=== PATIENT | male | born 1990 | race Caucasian/White ===

== ENCOUNTER 2018-11-15 11:45 | Inpatient (IN) | payer OTHER ==
[2018-11-15] MEDS ORDERED: VANCOMYCIN IV PER PHARMACY 1 EACH MISC MISCELLANE PRN (12:43)
[2018-11-15 13:36] VITALS: BMI 21.9
[2018-11-15] MEDS ORDERED: VANCOMYCIN 1,750 MG in SODIUM CHLORIDE 0.9% 500 ML 500 ML IVPB ONE (14:00)
[2018-11-15] MEDS: AMPICILLIN-SULBACTAM 3 GM in SODIUM CHLORIDE 0.9% 100 ML IVPB SCH ×2 (14:06→19:48)
[2018-11-15 14:26] LABS: African American GFR (CKD) >90 (>60 ml/min/1.73 sqM)
[2018-11-15] MEDS ORDERED: DIAZEPAM 5 MG TAB PO ONE (17:15)
--- NOTE | 2018-11-15 19:01 | MR ---
EXAMINATION TYPE: MR hand RT wo/w con DATE OF EXAM: 11/15/2018 COMPARISON: HISTORY: Right hand cellulitis CONTRAST: Standard multiplanar, multisequence MRI departmental protocol utilizing 7.5 mL intravenous Gadavist g adolinium contrast. FINDINGS: There is a 2.5 cm complex mixed signal mass in the soft tissues between the first and second metacarp al heads near the skin surface. The bony structures have normal signal pattern. There is no pathologi c enhancement. There multiple low signal areas within the mass that raises the possibility of foreign bodies. The flexor tendons of the hand appear intact. Extensor tendons appear intact. There is small amount o f fluid seen adjacent to the trapezoid and base of the second metacarpal that extends into the dista l anterior soft tissues. This is consistent with a synovial cyst. There is mild subcutaneous edema on the dorsum of the hand. IMPRESSION: Complex mass in the soft tissues as above between first and second metacarpals. Foreign body not excl uded. This is consistent with blood clot and air bubbles. Mild subcutaneous edema on the dorsum of the hand. \Simple fluid at the second carpometacarpal joint consistent with synovitis cyst.
[2018-11-15] MEDS ORDERED: ACETAMINOPHEN TAB 325 MG TAB PO PRN (19:16)
[2018-11-15] MEDS ORDERED: HYDROcodone/APAP 5-325MG 1 EACH TAB PO PRN (19:17)
--- NOTE | 2018-11-15 19:48 | P.PN ---
Subjective Progress Note Date: 11/15/18 The patient was seen and examined at the bedside. He states the pain seems to have improved. The fingers and thumb are moving easier. He thinks the redness has diminished as well. Objective - Vital Signs Vital signs: Vital Signs Temp 98.3 F 11/15/18 13:22 Pulse 81 11/15/18 13:22 Resp 16 11/15/18 13:22 BP 134/82 11/15/18 13:22 Pulse Ox 99 11/15/18 13:22 Intake & Output 11/15/18 11/15/18 11/16/18 06:59 18:59 06:59 Weight 86.035 kg - Exam Moderate edema in the 1st webspace. Mild tenderness to palpation. No calor or drainage. They erythema has improved. Lymphangitic streaking still noted along the volar forearm and medial arm but slightly less prominent than on prior exam. - Labs CBC & Chem 7: 11/15/18 14:05 Assessment and Plan Assessment: Right hand cellulitis status post splinter puncture wound Plan: Discussed the clinical findings with the patient. Recommended continued observation overnight. Continue IV abx. Will re-eval in am. NPO after midnight. PRN pain management.
[2018-11-15] MEDS: IBUPROFEN 800 MG TAB PO PRN (19:56)
[2018-11-15] MEDS: VANCOMYCIN 1,500 MG in SODIUM CHLORIDE 0.9% 250 ML IVPB SCH (23:11)
--- NOTE | 2018-11-15 23:12 | P.CONS ---
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 He did remove it and the site. However over the following hours the hand became very swollen he then developed evidence of lymphangitic streaking all the way to his axilla. With the acute change in the status he was sent for outpatient evaluation. He was seen in orthopedic hand office and admitted to hospital. At the time of admission had the pleasure of discussing the case with the orthopedic surgeon and antibiotic therapy with vancomycin and Unasyn was started given the foreign body injury. Pleasant gentleman relates that his pain is improving. He does have limited use of the right hand because of the significant swelling that is present. He has not noticed any purulent drainage. He's had low-grade fever and chill or rigors. Review of Systems HEENT:Denies headache or acute visual change. Denies sinus or mouth discomforts. Denies neck stiffness or pain. Denies significant oral cavity pain. Denies difficulty on swallowing. Lungs: Denies significant shortness of breath, cough, sputum production, or hemoptysis. Cardiovascular: Denies significant shortness of breath, chest pain, chest wall pain, orthopnea, dyspnea on exertion, syncope Gastrointestinal:Denies nausea, vomiting, diarrhea, constipation, hematemesis, melena, hematochezia. No no significant change of bowel habit noticed. Musculoskeletal: denies significant myalgias or arthralgias. No new joint swelling. Denies new back pain. Skin:\As per the HPI has developed injury to his right hand with significant swelling, erythema or ascending lymphangitis.. Neuro: Denies headache or visual change. Denies any new onset weakness or difficulty with ambulation. Denies falls or seizures. Psychiatric:Denies anxiety or depression. Endocrine: Denies significant fatigue, denies significant weight loss or weight gain. Past Medical History Past Medical History: No Reported History History of Any Multi-Drug Resistant Organisms: None Reported Additional Past Surgical History / Comment(s): lazy eye surgery at 17y/o Past Anesthesia/Blood Transfusion Reactions: No Reported Reaction Past Psychological History: No Psychological Hx Reported Additional Psychological History / Comment(s): . Lives in the family home with his and 5-month-old son. 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 No experience. No travel. Avid kia. No tobacco use and alcohol use or recreational drug use Smoking Status: Never smoker - Past Family History Mother Additional Family Medical History / Comment(s): etoh Medications and Allergies Home Medications and Allergies Comment(s): Current Medications Acetaminophen (Tylenol Tab) 650 mg PO Q4HR PRN PRN Reason: Pain Hydrocodone Bitart/Acetaminophen ([place] 5-325) 1 each PO Q4HR PRN PRN Reason: Pain Scale 6 to 10 Ampicillin Sodium/Sulbactam (Sodium 3 gm/ Sodium Chloride) 100 mls @ 200 mls/hr IVPB Q6HR [facility] Last Admin: 11/15/18 19:48 Dose: 200 mls/hr Documented by: Vancomycin HCl 1,500 mg/ (Sodium Chloride) 250 mls @ 125 mls/hr IVPB Q8H [facility] Ibuprofen (Motrin) 800 mg PO TID PRN PRN Reason: Moderate Pain Last Admin: 11/15/18 19:56 Dose: 800 mg Documented by: Home Medications Medication Instructions Recorded Confirmed Type Multivitamins, Thera [Multivitamin 1 tab PO DAILY 11/15/18 11/15/18 History (formulary)] Allergies Allergy/AdvReac Type Severity Reaction Status Date / Time No Known Allergies Allergy Verified 11/15/18 14:21 Physical Exam Vitals: Vital Signs Temp Pulse Resp BP Pulse Ox 11/15/18 21:12 99.6 F 73 16 126/71 98 11/15/18 13:22 98.3 F 81 16 134/82 99 Intake and Output 11/15/18 11/15/18 11/15/18 06:59 14:59 22:59 Intake Total 480 Balance 480 Intake: Oral 480 Other: Weight 86.035 kg Pleasant 28-year-old male, he has a tall thin but muscular build HEENT: Anicteric conjunctiva are pink and moist nasal mucosa grossly intact without significant lesions, there is no thrush. Neck: The neck is supple without significant lymphadenopathy or thyromegaly. Lungs: Good bilateral air entry without significant crackles or wheezing. There is no significant bronchial sounds. There is no egophony or dullness. Heart: Regular rate and rhythm with an audible S1-S2, no S3 no S4. There is no significant murmur click or rub, PMI was nondisplaced. Abdomen: Positive bowel sounds soft and nontender without palpable masses or organomegaly. There was no guarding or rebound. Extremities: The left upper extremities without abnormalities. The right upper extremity reveals evidence of the significant swelling to the hand with the nondraining puncture site in the first webspace. The puncture site is currently healed with no expressible purulence or fluid. There is the distinct ascending lymphangitis from the hand all the way to the axilla with evidence of some minimal tender lymphadenopathy to the axilla. There are no blisters or other open lesions being seen.The lower extremities are free from significant edema. The peripheral pulses were 2+ and symmetric. Neuro: Awake alert oriented to person place and time. There are no acute new gross focal sensory motor deficits. 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 It was removed and the site was cleansed. However shortly thereafter his hand started to swell he developed the extensive ascending lymphangitis all the way to the axilla with some adenopathy in the axilla. It some low-grade fever but no severe chills or rigors. With a severe abnormality was brought in the hospital. MRI has been requested by orthopedic surgery. Cases been discussed with them. MRI will help determine the need for surgical intervention and drainage and exploration for foreign body removal. For antimicrobial therapy while cultures are process vancomycin and Unasyn are being utilized because it was a wood related product. The patient is quite anxious but expectantly well. He is up-to-date with his tetanus vaccine. He knows to have a high protein diet when he is allowed to eat and if possible multivitamin should be utilized. Current Visit: Yes Status: Acute Code(s): S61.441A - PUNCTURE WOUND WITH FOREIGN BODY OF RIGHT HAND, INIT ENCNTR SNOMED Code(s): 849726029 (2) Ascending bacterial lymphangitis Current Visit: Yes Status: Acute Code(s): L03.91 - ACUTE LYMPHANGITIS, UNSPECIFIED; B96.89 - OTH BACTERIAL AGENTS THE CAUSE OF DISEASES [facility]SD [facility] SNOMED Code(s): 382413942
[2018-11-16] MEDS: AMPICILLIN-SULBACTAM 3 GM in SODIUM CHLORIDE 0.9% 100 ML IVPB SCH ×4 (01:43→18:15)
[2018-11-16] MEDS: IBUPROFEN 800 MG TAB PO PRN (03:24)
[2018-11-16] MEDS: VANCOMYCIN 1,500 MG in SODIUM CHLORIDE 0.9% 250 ML IVPB SCH ×3 (08:06→23:15)
--- NOTE | 2018-11-16 08:21 | P.PN ---
Subjective Progress Note Date: 11/16/18 The patient states that the redness of the arm has resolved but the pain and pressure in the hand has increased substantially. Early this morning, the hand started draining some clear, yellowish fluid. Objective - Vital Signs Vital signs: Vital Signs Temp 98.5 F 11/16/18 07:00 Pulse 75 11/16/18 07:00 Resp 18 11/16/18 07:31 BP 126/74 11/16/18 07:00 Pulse Ox 99 11/16/18 07:00 Intake & Output 11/15/18 11/16/18 11/16/18 18:59 06:59 18:59 Intake Total 480 Balance 480 Weight 86.035 kg Intake: Oral 480 Other: # Voids 2 2 - Exam Increased focal edema in the 1st webspace with underlying ecchymosis. The skin is quite tense. Moderate tenderness to palpation. Scant clear transudative fluid draining from the dorsal aspect of the first webspace commissure. Lymphangitic streaking up the arm/forearm has resolved. - Additional findings Additional findings: MRI images of the right hand were reviewed and interpreted from an orthopedic standpoint. These demonstrate a well-circumscribed nonenhancing fluid collection in the first webspace. This has mixed signal intensity and small air pockets. No obvious retained foreign bodies. This does not appear to track into the palm or extend into the muscle bellies. - Labs CBC & Chem 7: 11/15/18 14:05 Assessment and Plan Assessment: Right hand cellulitis status post splinter puncture wound with thenar eminence abscess Plan: Discussed the clinical findings with the patient. With the increasing pain, swelling and new onset drainage, I recommended proceeding with formal surgical debridement. Risks and benefits were discussed the patient. He expressed understanding and agreement to proceed with surgery. Continue NPO and PRN pain management. We will perform an incision and drainage of right hand abscess.
[2018-11-16] MEDS ORDERED: ONDANSETRON 4 MG/2 ML VIAL IVP ONE (09:45)
[2018-11-16] MEDS ORDERED: LIDOCAINE 1% 20 ML VIAL (10MG/ML) FOR IV START INTRADERMA PRN (09:45)
[2018-11-16] MEDS ORDERED: HYDROmorphone 0.5 MG/0.5 ML SYRINGE IVP PRN ×2 (09:45→12:04)
[2018-11-16] MEDS ORDERED: MIDAZOLAM 2 MG/2 ML VIAL ONE (10:29)
[2018-11-16] MEDS ORDERED: PROPOFOL 10 MG/ML 20 ML VIAL IV ONE (10:29)
[2018-11-16] MEDS ORDERED: fentaNYL (PF) 50 MCG/ML 2 ML AMP ONE (10:29)
[2018-11-16] MEDS ORDERED: LIDOCAINE 1% INJ 10MG/ML (20 ML MDV) ONE (10:29)
[2018-11-16] MEDS ORDERED: IV FLUID CONTINUATION 500 ML IV ONE (10:53)
[2018-11-16] MEDS ORDERED: ROPIVACAINE 5MG/ML 20ML VIAL MISCELLANE ONE ×3 (10:55)
[2018-11-16] MEDS ORDERED: LIDOCAINE 1% INJ 10MG/ML (20 ML MDV) SQ ONE ×2 (10:56)
[2018-11-16] MEDS: KETOROLAC 30 MG/ML 1 ML VIAL IVP SCH ×2 (12:06→18:14)
[2018-11-16] MEDS ORDERED: SODIUM CHLORIDE 0.9% 1,000 ML IV ONE (12:08)
[2018-11-16] MEDS: ONDANSETRON 4 MG/2 ML VIAL IVP PRN ×2 (12:25→18:14)
--- NOTE | 2018-11-16 12:48 | P.OP ---
Date of Procedure: 11/16/18 Preoperative Diagnosis: Right hand abscess status post puncture wound Postoperative Diagnosis: Right hand abscess status post puncture wound Procedure(s) Performed: Incision and drainage of right hand abscess Anesthesia: LISSET, local Surgeon: Jak Zee Estimated Blood Loss (ml): 5 Pathology: other (Wound culture swabs, deep tissue culture) Condition: stable Disposition: PACU Indications for Procedure: The patient is a very pleasant 28-year-old male who sustained a puncture wound to his right hand from a piece of treated pined lumber. When pain and swelling worsened, he was evaluated in the emergency department at an outside hospital and sent to my office for further evaluation. He was subsequently admitted for IV antibiotics and monitoring. The pain, swelling and redness initially improved with antibiotics, but gradually began worsening again. Surgical d ebridement was recommended. Risks and benefits were reviewed including (but not limited to) the risks of bleeding, injury to tendons or neurovascular structures, persistent or recurrent infection, wound healing problems, stiffness and possible need for additional surgery. The patient expressed understanding, willingness to accept these risks and wished to proceed with surgery. Consent forms were signed. The surgical site was confirmed and marked preoperatively. Operative Findings: Approximately 5 cc of cloudy yellow purulent fluid was encountered immediately after incision in the dorsal first webspace. No foreign matter was identified. The infection did not appear to involve the surrounding muscles or track into the deep spaces of the hand. No myonecrosis. Description of Procedure: The patient was brought to the operating suite by the anesthesia team and was positioned supine. All bony prominences were well-padded. General anesthesia was administered uneventfully. A tourniquet was placed on the operative limb, which was then prepped and draped in standard, sterile fashion. A time-out was performed, confirming patient identifiers, the operative side, site and the procedure to be performed: all team members expressed agreement. The limb was exsanguinated with an Esmarch (proximal to the wrist) and the tourniquet was i nflated. A longitudinal incision was marked over the dorsal aspect of the first web space. The skin was sharply incised and abundant cloudy, yellow purulent fluid was encountered and expressed from the wound. A swab culture was obtained. The wound was explored with blunt, spreading dissection. Scattered foci of thickened, reactive/fibrous tissue were encountered throughout the wound and were resected with rongeurs and scissors. A sample of this tissue from the deep portion of the first webspace was sent for culture. No foreign debris was identified. The incision was extended volarly to explore the puncture wound tract. Care was taken to protect the digital neurovascular bundles of the thumb. A small puncture wound was identified in the belly of the first dorsal interosseous mus susan. The muscle fibers were bluntly spread and no necrotic tissue or purulence was identified. Blunt, spreading dissection was used to explore the dorsum of the hand, as well as the volar aspect of the first webspace and thenar eminence. Septae were divided and small foci of thin, flores fluid were identified, but no pockets of grossly purulent fluid. A combination of sharp and mechanical debridement was used to resect infected and unhealthy tissue. The wound was copiously irrigated with 2 L of normal saline using a bulb syringe. The surrounding soft tissues were mechanically debrided with a curette. The tourniquet was released after 36 minutes at 250 mmHg. Excellent hemostasis was obtained with held pressure. The pressure from the swelling had caused separation of the most superficial skin layer at the central aspect of the incision. This tissue was sharply resected back to healthy margins. The incision was loosely closed over 2 separate pieces of a [place] drain with inter rupted 4-0 Prolene sutures. Local anesthetic without epinephrine was injected as a field block/partial wrist block for postoperative pain control. Sterile dressings of Adaptic, 4 x 4's, Kerlix and Coban were applied. All sponge, needle and instrument counts were correct at the end of the case. The patient tolerated the procedure well and was taken to recovery in stable condition. The patient will be returned to the floor for continued monitoring and IV antibiotics, to be guided by intraoperative cultures.
[2018-11-17] MEDS: KETOROLAC 30 MG/ML 1 ML VIAL IVP SCH ×5 (01:17→23:51)
[2018-11-17] MEDS: AMPICILLIN-SULBACTAM 3 GM in SODIUM CHLORIDE 0.9% 100 ML IVPB SCH ×4 (01:17→20:27)
[2018-11-17] MEDS: LACTATED RINGERS 1,000 ML IV SCH ×2 (01:18→20:27)
[2018-11-17] MEDS ORDERED: VANCOMYCIN TROUGH DUE 1 EACH MISC MISCELLANE ONE (06:00)
[2018-11-17 07:20] LABS: African American GFR (CKD) >90 (>60 ml/min/1.73 sqM)
[2018-11-17] MEDS: VANCOMYCIN 1,500 MG in SODIUM CHLORIDE 0.9% 250 ML IVPB SCH (08:36)
--- NOTE | 2018-11-17 10:38 | P.PN ---
Subjective Progress Note Date: 11/17/18 The patient states that the preoperative pain has improved substantially. The pressure sensation is gone. Pain is well-controlled with ibuprofen. He denies any numbness or tingling. He did have an episode of diarrhea this morning. Objective - Vital Signs Vital signs: Vital Signs Temp 98.5 F 11/17/18 07:00 Pulse 64 11/17/18 07:00 Resp 16 11/17/18 07:00 BP 129/83 11/17/18 07:00 Pulse Ox 99 11/17/18 07:00 Intake & Output 11/16/18 11/17/18 11/17/18 18:59 06:59 18:59 Intake Total 810 160 Output Total 5 Balance 805 160 Intake: IV 550 Intake, IV Titration 260 160 Amount Ampicillin-Sulbactam 3 gm 100 100 In Sodium Chloride 0.9% 100 ml @ 200 mls/hr IVPB Q6HR [facility] Rx#:[id number] Lactated Ringers 1,000 ml 160 60 @ 20 mls/hr IV .Q24H [facility] Rx#:[id number] Output: Estimated Blood Loss 5 Other: Voiding Method Toilet # Voids 2 1 - Exam The dressings were removed. Mild to moderate shadowing dorsally. Mild but improved edema around the hand. No discrete subcutaneous fluid collection. No erythema or eccymosis. The incision is well-approximated with sutures in place. No necrosis or dehiscence. The drains are in place. The more volar one was removed easily. Small amount of serous fluid followed by no purulence was expressed from the wound. Light touch sensation is subjectively normal on both sides of the thumb and index finger. The lymphangitic streaking up the arm has resolved. - Labs CBC & Chem 7: 11/17/18 06:37 Labs: Microbiology - Last 24 Hours (Table) 11/16/18 11:54 Gram Stain - Preliminary Hand - Right Wound Culture - Preliminary 11/16/18 11:54 Gram Stain - Preliminary Hand - Right Tissue Culture - Preliminary 11/16/18 11:54 Fungal Culture - Preliminary Hand - Right 11/16/18 11:54 Anaerobic Culture - Preliminary Hand - Right 11/16/18 11:54 Anaerobic Culture - Preliminary Hand - Right 11/16/18 11:54 Fungal Culture - Preliminary Hand - Right Preliminary cultures: Moderate gram-positive cocci Rare gram-negative bacilli Rare gram-positive bacilli Assessment and Plan Assessment: Postoperative day #1 status post incision and drainage of right hand abscess Preliminary cultures demonstrated a polymicrobial infection Plan: I discussed the clinical and intraoperative findings in detail with the patient. The hand is looking much better. A new dressing was applied. Range of motion exercises were demonstrated. He may use the hand lightly but should avoid gripping/squeezing. The diarrhea is likely due to the antibiotics. Continue IV antibiotics per ID -- appreciate Dr. Peña' assistance in the patient's care. Continue ibuprofen PRN for pain but instructed the patient to use the norco if this isn't adequately controlling it. Encourage ambulation for DVT prophylaxis. DC planning - patient may require outpatient IV antibiotic therapy. Note: The patient has a significant fear of needles. Recommend only perform ing lab draws when absolutely necessary.
[2018-11-17] MEDS: VANCOMYCIN 1,750 MG in SODIUM CHLORIDE 0.9% 500 ML 500 ML IVPB SCH ×2 (17:31→23:52)
[2018-11-18] MEDS: AMPICILLIN-SULBACTAM 3 GM in SODIUM CHLORIDE 0.9% 100 ML IVPB SCH ×4 (03:02→18:30)
[2018-11-18] MEDS: KETOROLAC 30 MG/ML 1 ML VIAL IVP SCH ×2 (05:48→11:37)
--- NOTE | 2018-11-18 07:58 | P.PN ---
Subjective Progress Note Date: 11/18/18 The patient states the pain has essentially resolved. "It feels great!" The diarrhea has also resolved. Denies new issues or concerns. Objective - Vital Signs Vital signs: Vital Signs Temp 98.3 F 11/18/18 07:22 Pulse 74 11/18/18 07:22 Resp 16 11/18/18 07:22 BP 116/63 11/18/18 07:22 Pulse Ox 99 11/18/18 07:22 Intake & Output 11/17/18 11/18/18 11/18/18 18:59 06:59 18:59 Intake Total 1180 800 Balance 1180 800 Intake: Intake, IV Titration 700 800 Amount Ampicillin-Sulbactam 3 gm 200 100 In Sodium Chloride 0.9% 100 ml @ 200 mls/hr IVPB Q6HR [facility] Rx#:[id number] Lactated Ringers 1,000 ml 200 @ 20 mls/hr IV .Q24H [facility] Rx#:[id number] Vancomycin 1,750 mg In 500 500 Sodium Chloride 0.9% 500 ml 500 ml @ 167 mls/hr IVPB Q8H [facility] Rx#: [id number] Oral 480 Other: Voiding Method Toilet Toilet Toilet # Voids 4 3 - Exam The dressings were removed. No erythema or ecchymosis. The incision is well-approximated with sutures in place. The central aspect is slightly white and macerated. The second drain was removed easily. No purulence or fluid collection was expressed from the wound. No tenderness at the base of the webspace or thenar eminence. - Labs CBC & Chem 7: 11/17/18 06:37 Labs: Microbiology - Last 24 Hours (Table) 11/16/18 11:54 Gram Stain - Preliminary Hand - Right Wound Culture - Preliminary 11/16/18 11:54 Gram Stain - Preliminary Hand - Right Tissue Culture - Preliminary Assessment and Plan Assessment: Postoperative day #2 status post incision and drainage of right hand abscess Preliminary cultures demonstrated a polymicrobial infection Plan: The hand continues to show clinical improvement. No further surgery anticipated at this time. A new dressing was applied. Continue range of motion exercises. Final cultures still pending. Continue empiric IV antibiotics per ID Continue PRN pain management. Encourage ambulation for DVT prophylaxis. DC planning - patient may require outpatient IV antibiotic therapy. Patient will be ready for discharge once final cultures obtained and definitive abx plan is in place. Note: The patient has a significant fear of needles. Recommend only performing lab draws when absolutely necessary.
[2018-11-18] MEDS: LACTATED RINGERS 1,000 ML IV SCH (08:32)
[2018-11-18] MEDS: VANCOMYCIN 1,750 MG in SODIUM CHLORIDE 0.9% 500 ML 500 ML IVPB SCH ×2 (08:33→16:13)
[2018-11-18 14:49] VITALS: RESP 18
[2018-11-18 18:01] LABS: Basophils # (A) 0.1 k/uL (0-0.2); Basophils % (A) 1 %; Eosinophils # (A) 0.3 k/uL (0-0.7); Eosinophils % (A) 3 %; HCT 42.5 % (39.0-53.0); Lymphocytes % (A) 23 %; MCH 30.6 pg (25.0-35.0); MCV 92.6 fL (80.0-100.0); Mean Platelet Volume 8.3; Monocytes # (A) 0.4 k/uL (0-1.0); Monocytes % (A) 5 %; Neutrophils # (A) 5.8 k/uL (1.3-7.7); Neutrophils % (A) 67 %; Platelet Count 257 k/uL (150-450); RBC 4.59 m/uL (4.30-5.90); RDW 11.9 % (11.5-15.5); WBC 8.8 k/uL (3.8-10.6)
[2018-11-18 18:12] LABS: ALT 36 U/L (21-72); AST 33 U/L (17-59); African American GFR (CKD) >90 (>60 ml/min/1.73 sqM); Albumin 4.1 g/dL (3.5-5.0); Alkaline Phosphatase 52 U/L (38-126); Anion Gap 10 mmol/L; Blood Urea Nitrogen 17 mg/dL (9-20); Calcium 9.6 mg/dL (8.4-10.2); Carbon Dioxide 23 mmol/L (22-30); Chloride 110 mmol/L (98-107); Glucose 122 mg/dL (74-99); Potassium 3.7 mmol/L (3.5-5.1); Sodium 143 mmol/L (137-145); Total Bilirubin 0.4 mg/dL (0.2-1.3)
[2018-11-18] MEDS: IBUPROFEN 800 MG TAB PO PRN (20:31)
--- NOTE | 2018-11-18 21:54 | P.PN ---
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 He did remove it and the site. However over the following hours the hand became very swollen he then developed evidence of lymphangitic streaking all the way to his axilla. With the acute change in the status he was sent for outpatient evaluation. He was seen in orthopedic hand office and admitted to hospital. At the time of admission had the pleasure of discussing the case with the orthopedic surgeon and antibiotic therapy with vancomycin and Unasyn was started given the foreign body injury. Pleasant gentleman relates that his pain is improving. He does have limited use of the right hand because of the significant swelling that is present. He has not noticed any purulent drainage. He's had low-grade fever and chill or rigors. 11/18/2018 patient now much improved, the lymphangitis has resolved and pain is improved except from the surgical site ,the drain was removed today and this has improved the local discomfort. No fever or chills is feeling much better. Objective - Vital Signs Vital signs: Vital Signs Temp 98.2 F 11/18/18 20:22 Pulse 63 11/18/18 20:22 Resp 18 11/18/18 20:22 BP 139/89 11/18/18 20:22 Pulse Ox 99 11/18/18 20:22 Intake & Output 11/18/18 11/18/18 11/19/18 06:59 18:59 06:59 Intake Total 800 221 Balance 800 221 Intake: Intake, IV Titration 800 Amount Ampicillin-Sulbactam 3 gm 100 In Sodium Chloride 0.9% 100 ml @ 200 mls/hr IVPB Q6HR [facility] Rx#:[id number] Lactated Ringers 1,000 ml 200 @ 20 mls/hr IV .Q24H [facility] Rx#:[id number] Vancomycin 1,750 mg In 500 Sodium Chloride 0.9% 500 ml 500 ml @ 167 mls/hr IVPB Q8H [facility] Rx#: [id number] Oral 221 Other: Voiding Method Toilet Toilet # Voids 3 1 - Exam Pleasant 28-year-old male, he has a tall thin but muscular build HEENT: Anicteric conjunctiva are pink and moist nasal mucosa grossly intact without significant lesions, there is no thrush. Neck: The neck is supple without significant lymphadenopathy or thyromegaly. Lungs: Good bilateral air entry without significant crackles or wheezing. There is no significant bronchial sounds. There is no egophony or dullness. Heart: Regular rate and rhythm with an audible S1-S2, no S3 no S4. There is no significant murmur click or rub, PMI was nondisplaced. Abdomen: Positive bowel sounds soft and nontender without palpable masses or organomegaly. There was no guarding or rebound. Extremities: The left upper extremities without abnormalities. The right upper extremity reveals evidence of the improved swelling to the hand with the Surgical site being sutured closed loosely without significant drainage. EARL drain has been removed. The ascending lymphangitis has completely resolved and the tender right axillary lymphadenopathy has also resolved.. There are no blisters or other open lesions being seen.The lower extremities are free from significant edema. The peripheral pulses were 2+ and symmetric. Neuro: Awake alert oriented to person place and time. There are no acute new gross focal sensory motor deficits. - Labs CBC & Chem 7: 11/18/18 17:32 11/18/18 17:32 Labs: Abnormal Lab Results - Last 24 Hours (Table) 11/18/18 Range/Units 17:32 Chloride 110 H (98-107) mmol/L Glucose 122 H (74-99) mg/dL Microbiology - Last 24 Hours (Table) 11/16/18 11:54 Gram Stain - Final Hand - Right Wound Culture - Final Laboratory Results WBC 8.8 k/uL (3.8-10.6) 11/18/18 17:32 RBC 4.59 m/uL (4.30-5.90) 11/18/18 17:32 Hgb 14.0 gm/dL (13.0-17.5) 11/18/18 17:32 Hct 42.5 % (39.0-53.0) 11/18/18 17:32 MCV 92.6 fL (80.0-100.0) 11/18/18 17:32 MCH 30.6 pg (25.0-35.0) 11/18/18 17:32 MCHC 33.0 g/dL (31.0-37.0) 11/18/18 17:32 RDW 11.9 % (11.5-15.5) 11/18/18 17:32 Plt Count 257 k/uL (150-450) 11/18/18 17:32 Neutrophils % 67 % 11/18/18 17:32 Lymphocytes % 23 % 11/18/18 17:32 Monocytes % 5 % 11/18/18 17:32 Eosinophils % 3 % 11/18/18 17:32 Basophils % 1 % 11/18/18 17:32 Neutrophils # 5.8 k/uL (1.3-7.7) 11/18/18 17:32 Lymphocytes # 2.0 k/uL (1.0-4.8) 11/18/18 17:32 Monocytes # 0.4 k/uL (0-1.0) 11/18/18 17:32 Eosinophils # 0.3 k/uL (0-0.7) 11/18/18 17:32 Basophils # 0.1 k/uL (0-0.2) 11/18/18 17:32 Sodium 143 mmol/L (137-145) 11/18/18 17:32 Potassium 3.7 mmol/L (3.5-5.1) 11/18/18 17:32 Chloride 110 mmol/L (98-107) H 11/18/18 17:32 Carbon Dioxide 23 mmol/L (22-30) 11/18/18 17:32 Anion Gap 10 mmol/L 11/18/18 17:32 BUN 17 mg/dL (9-20) 11/18/18 17:32 Creatinine 0.67 mg/dL (0.66-1.25) 11/18/18 17:32 Est GFR (CKD-EPI)AfAm >90 (>60 ml/min/1.73 sqM) 11/18/18 17:32 Est GFR (CKD-EPI)NonAf >90 (>60 ml/min/1.73 sqM) 11/18/18 17:32 Glucose 122 mg/dL (74-99) H 11/18/18 17:32 Calcium 9.6 mg/dL (8.4-10.2) 11/18/18 17:32 Total Bilirubin 0.4 mg/dL (0.2-1.3) 11/18/18 17:32 AST 33 U/L (17-59) 11/18/18 17:32 ALT 36 U/L (21-72) 11/18/18 17:32 Alkaline Phosphatase 52 U/L (38-126) 11/18/18 17:32 Total Protein 7.0 g/dL (6.3-8.2) 11/18/18 17:32 Albumin 4.1 g/dL (3.5-5.0) 11/18/18 17:32 Vancomycin Trough 8.3 ug/mL 11/17/18 06:37 Microbiology 11/16/18 11:54 Hand - Right Gram Stain - Final 11/16/18 11:54 Hand - Right Wound Culture - Final 11/16/18 11:54 Hand - Right Gram Stain - Preliminary 11/16/18 11:54 Hand - Right Tissue Culture - Preliminary 11/16/18 11:54 Hand - Right Fungal Culture - Preliminary 11/16/18 11:54 Hand - Right Anaerobic Culture - Preliminary 11/16/18 11:54 Hand - Right Anaerobic Culture - Preliminary 11/16/18 11:54 Hand - Right Fungal Culture - Preliminary deep culture shows some of the polymicrobial nature that was not further delineated Assessment and Plan (1) Puncture wound of right hand with foreign body Narrative/Plan: 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 It was removed and the site was cleansed. However shortly thereafter his hand started to swell he developed the extensive ascending lymphangitis all the way to the axilla with some adenopathy in the axilla. It some low-grade fever but no severe chills or rigors. With a severe abnormality was brought in the hospital. MRI has been requested by orthopedic surgery. Cases been discussed with them. MRI will help determine the need for surgical intervention and drainage and exploration for foreign body removal. For antimicrobial therapy while cultures are process vancomycin and Unasyn are being utilized because it was a wood related product. The patient is quite anxious but expectantly well. He is up-to-date with his tetanus vaccine. He knows to have a high protein diet when he is allowed to eat and if possible multivitamin should be utilized. 11/18/2018 the patient is now had the incision and drainage to the puncture site. The purulent material was cultured and the site was debrided to remove any of the necrotic material. The patient is now having rapid improvement. The ascending lymphangitis and tender lymphadenitis have resolved. The patient is not having fever and is feeling well. He did allow some blood work he has a normal white blood cell count. At this time the patient is having a good recovery postoperative period if in the morning orthopedics surgery believes he is waiting for discharge to home he may be discharged home on oral Augmentin to complete his course of therapy. No resistant pathogens been seen. He developed the office within a couple weeks to make sure he is doing well and will need orthopedics to determine his back to work date. Local wound care at this time is a non-dressing wrapped and place. Use of the hand as directed per orthopedics. Current Visit: Yes Status: Acute Code(s): S61.441A - PUNCTURE WOUND WITH FOREIGN BODY OF RIGHT HAND, INIT ENCNTR SNOMED Code(s): 345917975 (2) Ascending bacterial lymphangitis Current Visit: Yes Status: Acute Code(s): L03.91 - ACUTE LYMPHANGITIS, UNSPECIFIED; B96.89 - OTH BACTERIAL AGENTS THE CAUSE OF DISEASES [facility] SNOMED Code(s): 604744456
[2018-11-18 22:30] LABS: Erythrocyte Sedimentation Rate 26 mm/hr (0-15)
[2018-11-18] MEDS: AMOXIC-POT CLAV 500-125 MG 1 EACH TAB PO SCH (22:57)
[2018-11-18] MEDS ORDERED: VANCOMYCIN TROUGH DUE 1 EACH MISC MISCELLANE ONE (23:00)
[2018-11-19 07:55] LABS: African American GFR (CKD) >90 (>60 ml/min/1.73 sqM)
[2018-11-19 08:17] VITALS: BP 114/75; PULSE 64; TEMP 98.2
[2018-11-19] MEDS: AMOXIC-POT CLAV 500-125 MG 1 EACH TAB PO SCH (08:21)
--- NOTE | 2018-11-19 12:01 | P.PN ---
Subjective Progress Note Date: 11/19/18 The patient reports continued improvement in his hand. He still takes there is no pain but just an annoying itching sensation around the wound. He says he feels great and is eager to be discharged. He denies any issues or concerns. Objective - Vital Signs Vital signs: Vital Signs Temp 98.2 F 11/19/18 07:00 Pulse 64 11/19/18 07:00 Resp 18 11/19/18 07:00 BP 114/75 11/19/18 07:00 Pulse Ox 100 11/19/18 07:00 Intake & Output 11/18/18 11/19/18 11/19/18 18:59 06:59 18:59 Intake Total 221 Balance 221 Intake: Oral 221 Other: Voiding Method Toilet Toilet Toilet # Voids 1 1 1 - Exam The dressings were removed. Minimal edema surrounding the incision. No erythema or ecchymosis. Sutures are in place. There is a small amount of serous drainage from the wound. No purulence. The drain sites are filling in well with granulation tissue. - Labs CBC & Chem 7: 11/18/18 17:32 11/19/18 06:22 Labs: Abnormal Lab Results - Last 24 Hours (Table) 11/18/18 11/18/18 Range/Units 17:32 17:32 ESR 26 H (0-15) mm/hr Chloride 110 H (98-107) mmol/L Glucose 122 H (74-99) mg/dL Microbiology - Last 24 Hours (Table) 11/16/18 11:54 Gram Stain - Final Hand - Right Wound Culture - Preliminary Alpha Hemolytic Streptococcus Alpha Hemolytic Streptococcus#2 Alpha Hemolytic Streptococcus#3 11/16/18 11:54 Gram Stain - Preliminary Hand - Right Tissue Culture - Preliminary Alpha Hemolytic Streptococcus Alpha Hemolytic Streptococcus#2 Alpha Hemolytic Streptococcus#3 Assessment and Plan Assessment: Postoperative day #3 status post incision and drainage of right hand abscess Cultures positive for alpha-hemolytic Strep Plan: The hand shows excellent continued healing. A new dressing was applied. Continue range of motion exercises. Will continue on oral Augmentin outpatient, per ID. Okay to discharge home. Follow up outpatient in 1 week.
--- NOTE | 2018-11-19 12:10 | P.DS ---
Providers Date of admission: 11/16/18 12:37 Expected date of discharge: 11/19/18 Attending physician: Jak Zee DO Consults: 11/15/18 12:45 Consult Physician Routine Consulting Provider: Mauri Peña Consult Reason/Comments: right hand cellulitis, possible abscess Do you want consulting provider notified?: Yes Primary care physician: Stated None Hospital Course: Patient is a pleasant 28-year-old male who sustained a puncture wound to his right hand which resulted in an abscess with ascending lymphangitis. He was admitted to the hospital and underwent surgical debridement on 11/16/2018. Please see operative report for full details of the procedure. He was admitted for continued monitoring and IV antibiotics. His hospital course was uneventful. At this time, his wound is healing well. There are no signs of progressive or worsening infection. His vital signs are stable. His pain is well-controlled and he is deemed fit for discharge home. Procedures: Incision and drainage of right hand abscess on 11/16/2018 Patient Condition at Discharge: Good Plan - Discharge Summary Discharge Rx Participant: No New Discharge Prescriptions: New Amoxicillin/Potassium Clav [Augmentin 500-125 Tablet] 1 tab PO TID #42 tab No Action Multivitamins, Thera [Multivitamin (formulary)] 1 tab PO DAILY Discharge Medication List Multivitamins, Thera [Multivitamin (formulary)] 1 tab PO DAILY 11/15/18 [History] Amoxicillin/Potassium Clav [Augmentin 500-125 Tablet] 1 tab PO TID #42 tab 11/18/18 [Rx] Follow up Appointment(s)/Referral(s): Jak Zee DO [Medical Doctor] - 1 Week Mauri Peña MD [STAFF PHYSICIAN] - 2 Weeks Activity/Diet/Wound Care/Special Instructions: Orthopedic Postoperative Discharge Instructions No strenuous/forceful use of the hand. No lifting/gripping/pushing/pulling. No pinching. Ok to use the hand for light activities (eating/dressing/etc). Change dressings at least daily. Ok to shower and get incision wet with soap and water. Do not soak incision. No lotions or ointments on incision. Perform finger [id number] exercises several times daily. No squeeze balls. Use [id number] pain medication as directed. Call as soon as possible to schedule a follow-up appointment with Dr. Zee to be seen in approximately 1 week. Call the office with any questions or concerns. Discharge Disposition: HOME SELF-CARE
== END 2018-11-19 12:47 | disposition home or self-care (01) | DRG 580 ==
LOC: 4SSUR 13:00 → OBSVTOIN 11-16 12:37
PROVIDERS: ADMIT Orthopaedic Surgery; ATTEND Orthopaedic Surgery
PROC: 0JBJ0ZZ Excision of Right Hand Subcutaneous Tissue and Fascia, Open Approach (ICD-10-PCS; principal; 2018-11-16 09:55)
DX: L02.511 Cutaneous abscess of right hand (principal); L03.113 Cellulitis of right upper limb; S61.431A Puncture wound without foreign body of right hand, initial encounter; Z79.891 Long term (current) use of opiate analgesic; Z79.899 Other long term (current) drug therapy
CPT/HCPCS: 80053; 80202; 82565; 85025; 85652; 87070; 87075; 87077; 87102; 87186; 87205